=== PATIENT | female | born 1965 | race Caucasian/White ===

== ENCOUNTER → 2017-03-24 | Outpatient (CLI) | payer OTHER ==
[~2017-03-24] MED LIST: ALBUTEROL SULF8.5 GM IH; ALEVE220 MG PO; ALPRAZOLAM1 MG PO; AMBIEN; AMOXICILLIN875 MG PO; ASPIR-LOW81 MG PO; ASPIR-MOX 325325 MG PO; Ascorbic Acid,Ester- PO; Aspirin E.C. PO; BENTYL20 MG PO; CARVEDILOL3.125 MG PO; COLACE100 MG PO; COMBIVENT RESPIM4 GM IH; COMPAZINE10 MG PO; COREG6.25 M1 PO; CRESTOR20 MG PO; Colace PO; DIOVAN80 MG PO; FUROSEMIDE20 MG PO; Fish Oil PO; GLIPIZIDE ER2.5 MG PO; GLIPIZIDE5 MG PO; IMDUR30 MG PO; ISOSORBIDE MONO30 MG PO; Imdur PO; LANSOPRAZOLE30 MG PO; LASIX20 MG PO; LEVAQUIN750 MG PO; LINZESS145 MCG PO; LIPITOR40 MG PO; LO-DOSE ASPIRIN81 M2 PO; LOFIBRA,TRIGLI160 MG PO; LORATADINE10 M2 PO; Lasix PO; METFORMIN HCL500 M4 PO; METFORMIN PO; NITROSTAT0.4 MG SL; PANTOPRAZOLE SO40 MG PO; PLAVIX75 MG PO; PRISTIQ50 MG PO; PROZAC20 MG PO; REGLAN10 MG PO; ROBITUSSIN AC,T10 ML PO; SENNA8.6 MG PO; TESSALON200 MG PO; TRULICITY0.75 MG/0. SC; TYLENOL EXTRA500 MG PO; Theragran PO; Tricor PO; XANAX0.125 MG PO; XANAX1 MG PO; XANAX2 MG PO; Xanax PO; ZESTRIL,PRINIV2.5 MG PO; ZOFRAN ODT4 MG PO; ZOFRAN4 MG PO; prednisone
== END | disposition home or self-care (01) ==
LOC: NUC 02-26 08:30
DX: R10.13 Epigastric pain (principal); K30 Functional dyspepsia
CPT/HCPCS: 78264; A9541